=== PATIENT | male | born 1975 | race Hispanic/Latino ===

== ENCOUNTER 2024-08-28 13:23 | Emergency (ER) | payer SELFPAY ==
[~2024-08-28] VITALS: Ht 170.2 cm; Wt 77.1 kg
[~2024-08-28 13:23] MED LIST: CEPH500B PO
[2024-08-28 13:33] VITALS: BP 122/76; PULSE 75; RESP 18; TEMP 98.7; O2SAT 99
[2024-08-28] MEDS ORDERED: CEPH500B PO (13:36)
[2024-08-28] MEDS: acetaMINOPHEN 500 MG TABLET PO ONE (13:42)
[2024-08-28] MEDS: cePHALexin 500 MG CAPSULE PO ONE (13:42)
[2024-08-28] MEDS: teTANUS/diphthERIA TOXOID [ADULT] 0.5 ML VIAL IM ONE (13:45)
== END 2024-08-28 13:52 | disposition home or self-care (01) ==
LOC: EDH 13:23
DX: S61.210A Laceration without foreign body of right index finger without damage to nail, initial encounter (principal); F17.200 Nicotine dependence, unspecified, uncomplicated; Z79.899 Other long term (current) drug therapy; W26.8XXA Contact with other sharp object(s), not elsewhere classified, initial encounter; Y93.89 Activity, other specified; Y92.89 Other specified places as the place of occurrence of the external cause; Y99.8 Other external cause status
CPT/HCPCS: 90471; 90714